=== PATIENT | female | born 1995 | race Two or more races ===

== ENCOUNTER 2017-12-02 13:22 | Emergency (ER) | payer OTHER ==
[2017-12-02] MEDS ORDERED: Acetaminophen TAB* 325 MG PO ONE (14:12)
[2017-12-02] MEDS ORDERED: Oseltamivir CAP* 75 MG CAP PO ONE (14:39)
[2017-12-02 14:49] VITALS: BP 106/68
--- NOTE | 2017-12-02 16:03 | ED ---
Influenza-Like Illness - HPI Summary HPI Summary: Patient is an otherwise healthy 22-year-old female who presents to the ED with headache, cough and fever which began this morning. She endorses sick contacts , specifically the flu. Denies any body aches. Denies nausea, vomiting, diarrhea, constipation, urinary symptoms or back pain. She takes no medications daily. She has taken Tylenol this morning with relief of fever, but notes the cough remains. Headache is rated a 2 out of 10 and throbbing. - History of Current Complaint Chief Complaint: EDFluSymptoms Time Seen by Provider: 12/02/17 14:04 Hx Obtained From: Patient Onset/Duration: Gradual Onset Severity: Moderate Associated Signs & Symptoms: Fever, T Max - 101, F/C - Risk Factors Influenza Risk Factors: Negative - Allergy/Home Medications Allergies/Adverse Reactions: Allergies Allergy/AdvReac Type Severity Reaction Status Date / Time No Known Allergies Allergy Verified 12/02/17 14:02 PMH/Surg Hx/FS Hx/Imm Hx Previously Healthy: Yes - Immunization History Hx Pertussis Vaccination: No Immunizations Up to Date: Unable to Obtain/Confirm Infectious Disease History: No Infectious Disease History: Denies: Traveled Outside the [place] in Last 30 Days - Social History Occupation: Unemployed, Student Lives: Dormitory/Roommates Alcohol Use: None Hx Substance Use: No Substance Use Type: Reports: None Hx Tobacco Use: No Smoking Status (MU): Never Smoked Tobacco Review of Systems Positive: Fever, Fatigue, Skin Diaphoresis Cardiovascular: Negative Positive: Cough Genitourinary: Negative Positive: no symptoms reported, see HPI Musculoskeletal: Negative Neurological: Negative All Other Systems Reviewed And Are Negative: Yes Physical Exam Triage Information Reviewed: Yes Vital Signs On Initial Exam: Initial Vitals Temp Pulse Resp BP Pulse Ox 99.9 F 100 16 102/67 100 12/02/17 13:29 12/02/17 13:29 12/02/17 13:29 12/02/17 13:29 12/02/17 13:29 Vital Signs Reviewed: Yes Appearance: Positive: Well-Appearing, Well-Nourished Skin: Positive: Warm, Skin Color Reflects Adequate Perfusion Head/Face: Positive: Normal Head/Face Inspection Eyes: Positive: EOMI, HANG, Conjunctiva Clear Neck: Positive: Supple, Nontender, No Lymphadenopathy Respiratory/Lung Sounds: Positive: Clear to Auscultation, Breath Sounds Present Musculoskeletal: Positive: Strength/ROM Intact Neurological: Positive: Speech Normal Psychiatric: Positive: Normal, Affect/Mood Appropriate AVPU Assessment: Alert Diagnostics - Vital Signs Vital Signs Temp Pulse Resp BP Pulse Ox 12/02/17 14:47 99.6 F 99 18 106/68 100 12/02/17 13:29 99.9 F 100 16 102/67 100 - Laboratory Lab Results: Lab Results 12/02/17 Range/Units 13:42 Influenza A (Rapid) Positive H (Negative) Influenza B (Rapid) Negative (Negative) Lab Statement: Any lab studies that have been ordered have been reviewed, and results considered in the medical decision making process. Flu Symptom Course/Dx - Course Course Of Treatment: Patient is evaluated for flulike symptoms. Influenza swab obtained and influenza A+. She is given Tamiflu in the ED and prescribed Tamiflu for at home. Encouraged to take Tylenol for other symptoms. She is okay at this time for discharge. - Diagnoses Differential Diagnosis/HQI/PQRI: Positive: Influenza Provider Diagnoses: Influenza A Discharge - Discharge Plan Condition: Stable Disposition: HOME Prescriptions: Oseltamivir CAP* [Tamiflu CAP*] 75 mg PO BID #9 cap Patient Education Materials: Influenza (ED) Forms: *School Release Referrals: [facility] - Jeovany PISANO [Primary Care Provider] - Additional Instructions: Tylenol 650 mg 3 times daily for fevers and body aches Tamiflu twice daily 5 days
== END 2017-12-02 14:47 | disposition home or self-care (01) ==
LOC: ED 13:22
DX: J10.1 Influenza due to other identified influenza virus with other respiratory manifestations (principal)
CPT/HCPCS: 87502; 99282; A9270-GY